=== PATIENT | male | born 1950 | race Caucasian/White ===

== ENCOUNTER 2018-03-05 09:06 | Emergency (ER) | payer BC, MEDICARE ==
--- NOTE | 2018-03-05 09:43 | EDM.PDOC ---
ED HPI GENERAL MEDICAL PROBLEM - General Chief Complaint: Upper Extremity Injury/Pain Stated Complaint: RIGHT SHOULDER, LEFT ANKLE PAIN Time Seen by Provider: 03/05/18 09:36 Source of Information: Reports: Patient, RN Notes Reviewed History Limitations: Reports: No Limitations - History of Present Illness INITIAL COMMENTS - FREE TEXT/NARRATIVE: 68-year-old gentleman presents to the emergency department today complaint of right shoulder pain and left ankle pain, he injured himself at work yesterday when he was getting down a ladder when he had a load on his right shoulder and there was a misstep twisted the left ankle and fell back onto his right shoulder. Now he has pain with dorsiflexion and plantar flexion of the left foot and he cannot abductor his arm Right Shoulder Pain Score (Numeric/FACES): 9 - Related Data Allergies Allergy/AdvReac Type Severity Reaction Status Date / Time Penicillins Allergy Anaphylactic Verified 03/05/18 09:24 Shock Home Meds: Home Meds NK [No Known Home Meds] 03/05/18 [History] Past Medical History HEENT History: Reports: Impaired Vision Cardiovascular History: Reports: Stents Other Cardiovascular History: stent 2004 Musculoskeletal History: Reports: Fracture - Past Surgical History GI Surgical History: Reports: Hernia, Abdominal Other Musculoskeletal Surgeries/Procedures:: si joint injury left knee surgery. Social & Family History - Tobacco Use Smoking Status *Q: Heavy Tobacco Smoker Years of Tobacco use: 49 Packs/Tins Daily: 0.5 - Caffeine Use Caffeine Use: Reports: Coffee - Recreational Drug Use Recreational Drug Use: No Review of Systems - Review of Systems Review Of Systems: See Below Constitutional: Reports: No Symptoms Respiratory: Reports: No Symptoms Cardiovascular: Reports: No Symptoms Musculoskeletal: Reports: Shoulder Pain, Joint Pain (Ankle pain) Skin: Reports: No Symptoms Neurological: Reports: No Symptoms ED EXAM, GENERAL - Physical Exam Exam: See Below Free Text/Narrative:: examination of the right shoulder I don't appreciate any erythema there is no edema there is no obvious deformity there is no specific tenderness to palpation he can contact approximately 15. Examination of the left ankle pedal pulse is +2 pedal appreciate any erythema there is no edema there is no obvious deformity anterior drawer and tilt test are both negative he is point tender at the mortise joint lateral aspect Exam Limited By: No Limitations General Appearance: Alert, WD/WN, No Apparent Distress Respiratory/Chest: No Respiratory Distress Course - Vital Signs Last Recorded V/S: Last Vital Signs Temp 97 F 03/05/18 09:27 Pulse 63 03/05/18 09:27 Resp 18 03/05/18 09:27 BP 143/71 H 03/05/18 09:27 Pulse Ox 99 03/05/18 09:27 Departure - Departure Time of Disposition: 10:57 Disposition: Home, Self-Care 01 Condition: Good Clinical Impression: Left ankle sprain Qualifiers: Encounter type: initial encounter Involved ligament of ankle: unspecified ligament Qualified Code(s): S93.402A - Sprain of unspecified ligament of left ankle, initial encounter Right shoulder injury Qualifiers: Encounter type: initial encounter Qualified Code(s): S49.91XA - Unspecified injury of right shoulder and upper arm, initial encounter - Discharge Information Referrals: PCP,None [Primary Care Provider] - Forms: ED Department Discharge, ED Return to Work/School Form Additional Instructions: Continue to use the splint and sling as needed for comfort, use Tylenol or Motrin as needed for pain control, please call to the orthopedic clinic for an appointment time on March 15 - Assessment/Plan Plan: Assessment Acuity = acute Site and laterality = suspicious for tiny fracture of the left medial malleolus however he is not point tender in that area, no acute process is noticed in the right shoulder but suspicious for rotator cuff injury Etiology = secondary to fall Manifestations = none Location of injury = work Lab values = x-rays reveal possible tiny fracture in the left ankle no acute process is noted in the right shoulder Plan I did review lab work with him he is placed in a stirrup splint for the left ankle in a sling for the right shoulder he will follow-up with orthopedics in 1 week's time work note provided ibuprofen or Tylenol as needed for pain control This note was dictated using [employer] voice recognition software please call with any questions on syntax or greg.
--- NOTE | 2018-03-05 10:28 | CR ---
Shoulder Comp Rt HISTORY: Fall, pain FINDINGS: No acute fracture or dislocation is identified. Bony architecture and joint spaces are preserved. S oft tissues are unremarkable. IMPRESSION: No acute right shoulder abnormality identified.
--- NOTE | 2018-03-05 10:31 | CR ---
Ankle Min 3V Lt HISTORY: Twisting injury, pain FINDINGS: There is a minute curvilinear calcific density at the tip of the medial malleolus. This cou ld be a tiny avulsion fracture or could be degenerative. No other fracture or dislocation about the l eft ankle is identified. Bony architecture and ankle mortise are preserved. There is slight soft tiss ue swelling laterally. Venous stasis calcifications are noted lower left leg. IMPRESSION: 1. Possible tiny avulsion fracture tip of the medial malleolus. Small osteophyte complex similar. Rec ommend clinical correlation for point tenderness. No other acute fracture is identified. 2. Slight soft tissue swelling laterally. 3. Venous stasis calcifications are noted lower left leg.
== END 2018-03-05 11:14 | disposition home or self-care (01) ==
LOC: JP.ED 09:06
DX: S93.402A Sprain of unspecified ligament of left ankle, initial encounter (principal); S49.91XA Unspecified injury of right shoulder and upper arm, initial encounter; F17.210 Nicotine dependence, cigarettes, uncomplicated; Z88.0 Allergy status to penicillin; W11.XXXA Fall on and from ladder, initial encounter
CPT/HCPCS: 73030-26-RT; 73030-RT; 73610-26-LT; 73610-LT; 99284

== ENCOUNTER 2018-12-01 09:13 | Emergency (ER) | payer SELFPAY ==
--- NOTE | 2018-12-01 09:57 | EDM.PDOC ---
ED HPI GENERAL MEDICAL PROBLEM - General Chief Complaint: Upper Extremity Injury/Pain Stated Complaint: FELL AT WORK 11/30/18 Time Seen by Provider: 12/01/18 09:25 Source of Information: Reports: Patient History Limitations: Reports: No Limitations - History of Present Illness INITIAL COMMENTS - FREE TEXT/NARRATIVE: 68-year-old male who just recently returned to work after reverse right shoulder orthopedic procedure, fell yesterday when he tripped over a cord that was hidden in the snow landing on an outstretched left arm. He felt a pull or a pop in his left shoulder, today he has pain and limited range of motion. He did not reinjure his right shoulder. He is having difficulty abducting and raising the shoulder. Onset: Sudden Duration: Day(s): (1 day ago) Location: Reports: Upper Extremity, Left Associated Symptoms: Reports: No Other Symptoms - Related Data Allergies Allergy/AdvReac Type Severity Reaction Status Date / Time Penicillins Allergy Anaphylactic Verified 12/01/18 09:31 Shock tramadol Allergy Indigestion Verified 12/01/18 09:31 Home Meds: Home Meds Naproxen Sodium [Aleve] 440 mg PO BID PRN 04/01/18 [History] Past Medical History HEENT History: Reports: Impaired Vision Cardiovascular History: Reports: Stents Other Cardiovascular History: stent 2005 Musculoskeletal History: Reports: Fracture, Other (See Below) Other Musculoskeletal History: L ankle Fx. R shoulder pain - Past Surgical History GI Surgical History: Reports: Hernia, Abdominal Musculoskeletal Surgical History: Reports: Shoulder Surgery Other Musculoskeletal Surgeries/Procedures:: si joint injury left knee surgery. Social & Family History - Tobacco Use Smoking Status *Q: Current Every Day Smoker Years of Tobacco use: 30 Packs/Tins Daily: 0.5 - Caffeine Use Caffeine Use: Reports: Coffee - Recreational Drug Use Recreational Drug Use: No Review of Systems - Review of Systems Review Of Systems: See Below Constitutional: Denies: Fever Respiratory: Denies: Shortness of Breath Cardiovascular: Denies: Chest Pain GI/Abdominal: Denies: Abdominal Pain Skin: Reports: No Symptoms Neurological: Denies: Paresthesia ED EXAM, GENERAL - Physical Exam Exam: See Below Exam Limited By: No Limitations General Appearance: Alert, No Apparent Distress Head: Atraumatic Neck: Supple Respiratory/Chest: No Respiratory Distress Extremities: Other (Exam is otherwise limited to the left upper extremity. The clavicle and scapula are nontender. He has some palpation tenderness to the deltoid and before meals area but no step-off or crepitus. There is no deformity. Passive range of motion of the shoulder is sore with abduction and external rotation, actively he has difficulty with abduction and extension.) Course - Vital Signs Last Recorded V/S: Last Vital Signs Temp 96.8 F 12/01/18 09:32 Pulse 74 12/01/18 09:32 Resp 16 12/01/18 09:32 BP 159/83 H 12/01/18 09:32 Pulse Ox 98 12/01/18 09:32 - Re-Assessments/Exams Free Text/Narrative Re-Assessment/Exam: 12/01/18 09:56 An x-ray of the left shoulder was obtained. 12/01/18 10:26 X-ray shows mild to moderate arthritis but no acute findings, no fracture or dislocation. Patient was urged to increase activity as tolerated over the course of the next 4-6 days and recheck with orthopedics next week if not improving satisfactorily. Departure - Departure Time of Disposition: 10:38 Disposition: Home, Self-Care 01 Condition: Good Clinical Impression: Strain of left shoulder Qualifiers: Encounter type: initial encounter Qualified Code(s): S46.912A - Strain of unspecified muscle, fascia and tendon at shoulder and upper arm level, left arm , initial encounter - Discharge Information Instructions: Shoulder Pain, [id number] Referrals: PCP,None [Primary Care Provider] - Forms: ED Department Discharge Care Plan Goals: Continue with anti-inflammatories or Tylenol, increase activity as tolerated and consider rechecking with orthopedics next week if not improving satisfactorily. If range of motion returns and pain decreases no recheck is necessary.
--- NOTE | 2018-12-01 10:38 | CR ---
Shoulder Comp Lt CLINICAL HISTORY: Pain, fall. Findings: There is spurring at the AC joint. Glenohumeral joint appears intact. No fracture is identified Impression: Osteoarthritic change at the AC joint No fracture or subluxation
== END 2018-12-01 10:38 | disposition home or self-care (01) ==
LOC: JP.ED 09:13
DX: S46.912A Strain of unspecified muscle, fascia and tendon at shoulder and upper arm level, left arm, initial encounter (principal); W18.09XA Striking against other object with subsequent fall, initial encounter; Y93.9 Activity, unspecified; Y99.0 Civilian activity done for income or pay; Z98.890 Other specified postprocedural states; F17.200 Nicotine dependence, unspecified, uncomplicated; Z88.0 Allergy status to penicillin; Z88.5 Allergy status to narcotic agent; Z79.1 Long term (current) use of non-steroidal anti-inflammatories (NSAID); Z95.5 Presence of coronary angioplasty implant and graft
CPT/HCPCS: 73030-26-LT; 73030-LT; 99284

== ENCOUNTER 2019-01-12 07:02 | Day surgery (SDC) | payer OTHER ==
[~2019-01-12 07:02] MED LIST: Bupivacaine 0.25% 10 ML SDV ONE
[2019-01-12] MEDS: Sodium Chloride 0.9% 1,000 ML IV SCH (07:20)
[2019-01-12] MEDS: Acetaminophen 500 MG Tab PO ONE (07:24)
[2019-01-12] MEDS: Scopolamine 1.5 MG Transdermal Patch TOP ONE (07:24)
[2019-01-12] MEDS ORDERED: Dexamethasone 4 MG/ML SDV ONE (07:30)
[2019-01-12] MEDS ORDERED: Neostigmine Methylsulfate 1 MG/ML 5 ML Syringe ONE (07:30)
[2019-01-12] MEDS ORDERED: Ondansetron 4 MG/2 ML SDV ONE (07:30)
[2019-01-12] MEDS ORDERED: Glycopyrrolate 0.2 MG/ML 5 ML MDV ONE (07:30)
[2019-01-12] MEDS ORDERED: Rocuronium 50 MG/5 ML Vial ONE (07:30)
[2019-01-12] MEDS ORDERED: Propofol 200 MG/20 ML SDV ONE ×2 (07:30→09:12)
[2019-01-12] MEDS ORDERED: fentaNYL 250 MCG/5 ML SDV ONE (07:35)
[2019-01-12] MEDS ORDERED: ceFAZolin 1 GM Vial IM ONE (07:39)
[2019-01-12] MEDS ORDERED: ceFAZolin 1 GM Vial IV ONE (07:39)
[2019-01-12] MEDS: ceFAZolin 1 GM in Premix Bag 1 BAG IV ONE (08:42)
[2019-01-12] MEDS ORDERED: Midazolam 1 MG/ML 2 ML SDV ONE (08:59)
[2019-01-12] MEDS: Bupivacaine 0.5% 30 ML SDV ONE (09:36)
[2019-01-12 11:52] VITALS: BP 100/61
--- NOTE | 2019-01-12 12:53 | PCM.OPNOTE ---
- General Post-Op/Procedure Note Date of Surgery/Procedure: 01/12/19 Operative Procedure(s): Arthroscopy left shoulder with debride of labrum and chondroplasty of humeral head, subacromial decompression and repair of rotator cuff Findings: Mild to moderate OA glenohumeral joint, severe partial tear rotator cuff ( supraspinatus), Impingement Pre Op Diagnosis: Impingement left shoulder with rotator cuff tear Post-Op Diagnosis: Impingement left shoulder, severe partial rear of rotator cuff, moderate OA glenohumeral joint Anesthesia Technique: General ET Tube, Other (see below) (interscalene block) Primary Surgeon: Derrick Membreno EBL in mLs: 5 Complications: None Condition: Good Free Text/Narrative:: Intake & Output 01/11/19 01/12/19 01/12/19 22:59 06:59 14:59 Intake Total 1100 Balance 1100 Indications: Issac is a 68-year-old gentleman with a history of left shoulder pain for the past year. Examination and imaging are consistentwith impingement of the left shoulderand severe tendinopathy with a probable full thickness cuff tear. He now [facility] forsubacromial decompression and repair of rotator cuff as necessary. Procedure: After adequate anesthesia was obtained patient was placed in a lateral decubitus position and secured with the beanbag.The left shoulder and arm were prepped and draped in a sterile fashion.10 pounds of traction was placed through the traction unit. Standard posterior portal was established and the glenohumeral joint was inspected.This revealed mild to moderate degenerative changes, including fraying of the labrum, primarily anterior and superior.Articular cartilage of the humeral head showed grade 3 changes with some areas of early grade 4.The articular surface of the glenoid was relatively intact. Subscapularis was intact.Biceps tendon showed some very minor fraying. The undersurface of the rotator cuff showed a severe partial thickness tear. Anterior portal was established and a shaver was introduced. Debridement of the labrum was performed. Chondroplasty was also performed on the humeral head removing any loose cartilaginous flaps. Spinal needle was placed through the area of most severe tendon tear. This was marked with a PDS suture.Sutures brought out through the anterior portal. Scope was then placed into the subacromial space. Moderate bursitis was present. Initial evaluation of the cuff showed no evidence of full-thickness tear. Very thick coracoacromial ligament was present. The ablation wand was used to perform a decompression removing the coracoacromial ligament from the undersurface of the acromion. A bur was then utilized to perform an acromioplasty removing approximately 5 mm from the undersurface of the acromion. Attention was then redirected to the rotator cuff. The area that was marked showed intact bursal surface but was significantly thin in the area of the tear that was visualized from the articular side. Due to the significant portion of the tendon which was compromised, decision was made to complete the tear and proceed with a repair. A separate accessory portal was established. An 11 blade was used to resect a small portion from the bursal side of the tendon in the area of the partial-thickness tear. This was approximately 10-12 mm in width. Shaver was then used to debride the tendon. A bur was then utilized to decorticate the superior surface of the tuberosity. An awl was used to prepare a spot for a 4.5 mm helix anchor. [place] was placed with excellent purchase. Both limbs of each suture pair were then brought up through the tendon approximately a centimeter back from the edge of the tear into solid tendon tissue. Sutures were then tied down using standard arthroscopic technique reapproximating the tendon to the tuberosity.A spot was then cleared off the lateral edge of the tuberosity. An awl was used to prepare a hole for a lateral row suture bridge anchor.All 4 limbs of the sutures were passed through the anchor.These were placed in slight tension and the anchor then secured into the bone of the tuberosity. This provided a good suture bridge over the edge of the acromion with very nice tension on the sutures. Sutures were cut.Subacromial space was evaluated once again. Decompression was thought to be adequate and no other tears or abnormalities were identified. Scope was withdrawn and the port sites were closed with 3-0 Monocryl and Steri-Strips are applied. Sterile dressing was then placed. Patient tolerated procedure very well there were no complications and he was taken from the operating room in stable condition
== END 2019-01-12 12:30 | disposition home or self-care (01) ==
LOC: JP.SDS 07:02
PROVIDERS: ATTEND Specialist
DX: M75.112 Incomplete rotator cuff tear or rupture of left shoulder, not specified as traumatic (principal); M75.42 Impingement syndrome of left shoulder; M19.012 Primary osteoarthritis, left shoulder; M71.9 Bursopathy, unspecified; I25.10 Atherosclerotic heart disease of native coronary artery without angina pectoris; F17.210 Nicotine dependence, cigarettes, uncomplicated
CPT/HCPCS: A9270-GY; J0690; J1100; J2250; J2405; J2704; J2710; J3010; J3490; J7030

== ENCOUNTER 2019-04-27 22:42 | Emergency (ER) | payer MEDICARE, OTHER ==
[2019-04-28] MEDS ORDERED: Ketorolac 60 MG/2 ML SDV IM ONE (00:02)
--- NOTE | 2019-04-28 00:08 | EDM.PDOC ---
ED HPI GENERAL MEDICAL PROBLEM - General Chief Complaint: Upper Extremity Injury/Pain Stated Complaint: RIGHT ARM PAIN/PULLED MUSCLE Time Seen by Provider: 04/27/19 23:57 Source of Information: Reports: Patient, RN Notes Reviewed History Limitations: Reports: No Limitations - History of Present Illness INITIAL COMMENTS - FREE TEXT/NARRATIVE: 6-year-old gentleman presents emergency department today with complaint of right arm pain, in the biceps he does admit to doing a lot of repetitive motion with staining denies any trauma Treatments UI DEVELOPER: Reports: Other (see below) Other Treatments UI DEVELOPER: Aleve - Related Data Allergies Allergy/AdvReac Type Severity Reaction Status Date / Time Penicillins Allergy Severe Anaphylactic Verified 04/27/19 23:44 Shock tramadol Allergy Indigestion Verified 04/27/19 23:44 Home Meds: Home Meds NK [No Known Home Meds] 03/10/19 [History] Past Medical History HEENT History: Reports: Impaired Vision Cardiovascular History: Reports: CAD, Stents Other Cardiovascular History: stent 2004 Musculoskeletal History: Reports: Fracture, Other (See Below) Other Musculoskeletal History: s/p L RCR 01/12/19 - Infectious Disease History Infectious Disease History: Reports: Chicken Pox - Past Surgical History HEENT Surgical History: Reports: None Cardiovascular Surgical History: Reports: None Respiratory Surgical History: Reports: None GI Surgical History: Reports: Hernia, Abdominal Social & Family History - Family History Family Medical History: Noncontributory - Tobacco Use Smoking Status *Q: Never Smoker Second Hand Smoke Exposure: No - Caffeine Use Caffeine Use: Reports: Coffee - Recreational Drug Use Recreational Drug Use: No Review of Systems - Review of Systems Review Of Systems: See Below Musculoskeletal: Reports: Arm Pain ED EXAM, GENERAL - Physical Exam Exam: See Below Free Text/Narrative:: Examination of the right arm the biceps is markedly edematous and tender cannot appreciate a specific bolds muscle seems to be homogeneous throughout he has full range of motion shoulder and elbow radial pulses +2 Exam Limited By: No Limitations General Appearance: Alert, WD/WN, No Apparent Distress Course - Vital Signs Last Recorded V/S: Last Vital Signs Temp 98.2 F 04/27/19 23:54 Pulse 70 04/27/19 23:54 Resp 12 04/27/19 23:54 BP 125/72 04/27/19 23:54 Pulse Ox 98 04/27/19 23:54 - Orders/Labs/Meds Meds: Medications Discontinued Medications Generic Name Dose Route Start Last Admin Trade Name Damon PRN Reason Stop Dose Admin Ketorolac Tromethamine 60 mg 04/28/19 00:02 Toradol IM 04/28/19 00:03 ONETIME ONE Departure - Departure Time of Disposition: 00:07 Disposition: Home, Self-Care 01 Condition: Fair Clinical Impression: Biceps strain Qualifiers: Encounter type: initial encounter Laterality: right Qualified Code(s): S46.211A - Strain of muscle, fascia and tendon of other parts of biceps, right arm, initial encounter - Discharge Information Instructions: Muscle Strain, [id number] Referrals: PCP,None [Primary Care Provider] - Additional Instructions: Continue to use Tylenol and Motrin as needed for pain control, the orthopedic department will call you for follow-up time - Assessment/Plan Plan: Assessment Acuity = acute Site and laterality = biceps strain Etiology = secondary to overuse injury Manifestations = pain Location of injury = Home Lab values = none] Plan Toradol was provided in the ED consultations orthopedics is set up for next week This note was dictated using [employer] voice recognition software please call with any questions on syntax or grammar.
== END 2019-04-28 00:33 | disposition home or self-care (01) ==
LOC: JP.ED 22:42
DX: S46.211A Strain of muscle, fascia and tendon of other parts of biceps, right arm, initial encounter (principal); Z88.0 Allergy status to penicillin; Z88.5 Allergy status to narcotic agent; X50.3XXA Overexertion from repetitive movements, initial encounter
CPT/HCPCS: 96372; 99283; J1885